=== PATIENT | female | born 1965 | race Hispanic/Latino ===

== ENCOUNTER 2022-12-17 12:29 | Outpatient (CLI) | payer OTHER | END 2022-12-17 12:30 | disposition home or self-care (01) | LOC: NAV RAD 12:29 | PROVIDERS: ATTEND Family Medicine | DX: M25.511 Pain in right shoulder (principal); M54.50 Low back pain, unspecified; M47.816 Spondylosis without myelopathy or radiculopathy, lumbar region; M19.011 Primary osteoarthritis, right shoulder | CPT/HCPCS: 72100 ==